=== PATIENT | female | born 1990 | race African-American/Black ===

== ENCOUNTER 2017-12-10 20:44 | Emergency (ER) | payer MEDICAID, OTHER ==
[~2017-12-10] VITALS: Ht 165.1 cm; Wt 65.0 kg
[2017-12-11] MEDS ORDERED: METHOCARBAMOL 500MG TABLET PO ONE (01:00)
[2017-12-11] MEDS ORDERED: IBUPROFEN 600MG TABLET PO ONE (01:00)
[2017-12-11 05:08] VITALS: BP 119/88
== END 2017-12-11 05:10 | disposition home or self-care (01) ==
LOC: ER 23:15
DX: S16.1XXA Strain of muscle, fascia and tendon at neck level, initial encounter (principal); M79.1 Myalgia; F17.200 Nicotine dependence, unspecified, uncomplicated; J45.909 Unspecified asthma, uncomplicated; W01.0XXA Fall on same level from slipping, tripping and stumbling without subsequent striking against object, initial encounter; Y93.9 Activity, unspecified; Y92.9 Unspecified place or not applicable
CPT/HCPCS: 71111; 72125; 81025; 93005; 99284